=== PATIENT | female | born 1970 | race African-American/Black ===

== ENCOUNTER 2024-08-16 14:00 | Emergency (ER) | payer OTHER, SELFPAY ==
[2024-08-16] VITALS (17 sets, daily range): BP systolic 107–144; BP diastolic 72–95; PULSE 52–70; TEMP 36.8; O2SAT 94–99; BMI 35.8
--- NOTE | 2024-08-16 14:24 | ECG_ITS ---
[facility] Test Date: 2024-08-16 Pat Name: ALIZA MCKEON Department: Room: - Gender: Female [employer]: : 1970 Requested By: [id number] Order Number: [id number] Reading MD: MODESTO GIRON Measurements Intervals [place] Rate: 61 P: 58 [place]: 160 QRS: -25 QRSD: 84 T: 41 QT: 376 QTc: 379 Interpretive Statements 1100 Sinus rhythm 7202 Moderate left axis deviation 9110 normal ECG Electronically Signed On 08-16-2024 19:51:47 EST by MODESTO GIRON
--- NOTE | 2024-08-16 14:33 | ED.CHESTPAI1 ---
Documented by User: TIN Holm 08/16/24 16:20 HPI - Chest Pain General Chief Complaint: Chest Pain Stated Complaint: CHEST PAIN Time Seen by Provider: 08/16/24 14:07 Source: patient Mode of arrival: walk-in Limitations: no limitations History of Present Illness HPI narrative: Patient is a 54-year-old female with a history of hypercholesterolemia and bipolar disorder who presents to the emergency department for a 5 to 6-day history of pain in the left superior chest radiating into the neck and shoulder. Pain is worse with movement of the neck and lifting her left arm. 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 She denies any recent illness, cough or shortness of breath. She was never a smoker. She states her father had a heart attack at age 42 but he was on dialysis and had many other medical problems. She has no personal history of any heart or lung problems. She states her legs are chronically swollen but not unilaterally swollen or worse today. No medications taken prior to arrival. Related Data Home Medications ?Medication ?Instructions ?Recorded ?Confirmed duloxetine 30 mg capsule,delayed 30 mg PO DAILY 08/16/24 08/16/24 release rosuvastatin 20 mg tablet 20 mg PO DAILY 08/16/24 08/16/24 Previous Rx's ?Medication ?Instructions ?Recorded ketorolac 10 mg tablet 10 mg PO TID PRN pain #10 tabs 08/16/24 methocarbamol 750 mg tablet 750 mg PO TID PRN pain #20 tabs 08/16/24 Allergies Allergy/AdvReac Type Severity Reaction Status Date / Time No Known Drug Allergies Allergy Verified 08/16/24 14:19 Review of Systems ROS Constitutional Denies: fever or chills Ears, nose, mouth, and throat Reports: neck pain; Denies: throat pain Cardiovascular Reports: chest pain and swelling of feet/ankles; Denies: palpitations or shortness of breath with exertion Respiratory Denies: shortness of breath or cough Gastrointestinal Denies: abdominal pain, nausea or vomiting Musculoskeletal Reports: neck pain; Denies: back pain Integumentary/Breast Denies: rash Neurological Denies: numbness in extremities or weakness in extremities Hematologic/Lymphatic Denies: easy bruising or easy bleeding PFSH PFSH Social History Little interest or pleasure in doing things: not at all Feeling down, depressed, or hopeless: not at all Exam Narrative Exam Narrative: Gen.: Awake, alert, in no distress Head: Normocephalic, atraumatic ENT: Moist mucous membranes Respiratory: No respiratory distress, lungs clear bilaterally Cardio: Regular rate and rhythm Extremities: Moves extremities equally, no pitting edema Psych: Normal mood and affect Neuro: No focal neuro deficit Skin: Warm, dry, intact Constitutional Vital Signs, click to edit/add: Last Vital Signs Temp 98.2 F 08/16/24 14:09 Pulse 60 08/16/24 16:33 Resp 16 08/16/24 16:33 BP 139/89 08/16/24 16:33 Pulse Ox 98 08/16/24 16:33 O2 Del Method Room Air 08/16/24 16:33 Course Vital Signs Vital signs: Vital Signs Temperature 98.2 F 08/16/24 14:09 Pulse Rate 68 08/16/24 14:09 Respiratory Rate 18 08/16/24 14:09 Blood Pressure 144/95 H 08/16/24 14:09 Pulse Oximetry 98 08/16/24 14:09 Oxygen Delivery Method Room Air 08/16/24 14:09 Temperature 98.2 F 08/16/24 14:09 Pulse Rate 60 08/16/24 16:33 Respiratory Rate 16 08/16/24 16:33 Blood Pressure 139/89 08/16/24 16:33 Pulse Oximetry 98 08/16/24 16:33 Oxygen Delivery Method Room Air 08/16/24 16:33 MDM - Chest Pain MDM Narrative Medical decision making narrative: Medicated with aspirin as a precaution, given Toradol and Solu-Medrol for suspected musculoskeletal pain. Given history of high cholesterol and family history however, full cardiac workup including D-dimer was ordered. D-dimer and troponin are within normal limits, chest x-ray was obtained and repeat troponin was ordered as well. Patient with a heart score of 3 for BMI, family history and high cholesterol. Repeat troponin is within normal limits. Patient is hemodynamically stable with an unremarkable EKG and labs. She will be treated for musculoskeletal versus pleuritic chest pain for home, she has an appointment with her doctor on Friday and she was encouraged to keep this appointment for further testing as needed. Return to the ER if symptoms change or worsen. SUPERVISED APC VISIT, PHYSICIAN ATTESTATION: Based on the medical record the care appears appropriate. ? Medical Records Data Attestation: I reviewed the patient's medical records. Lab Data Attestation: I reviewed the patient's lab results. Labs: Lab Results 08/16/24 08/16/24 Range/Units 14:25 15:33 WBC 7.0 (4.0-11.0) 10^3/uL RBC 4.05 L (4.20-5.40) 10^6/uL Hgb 11.9 L (12.0-16.0) g/dL Hct 36.5 (36.0-48.0) % MCV 90.1 (81.0-99.0) fL MCH 29.4 (26.7-34.0) pg MCHC 32.6 (29.9-35.2) g/dL RDW 12.1 (11.0-15.0) % Plt Count 364 (150-450) 10^3/uL MPV 10.0 (9.5-13.5) fL Neut % (Auto) 56.2 (43.0-75.0) % Lymph % (Auto) 33.4 (20.5-60.0) % [place] % (Auto) 5.2 (1.7-12.0) % Eos % (Auto) 3.6 (0.9-7.0) % Baso % (Auto) 1.6 (0.2-2.0) % Neut # (Auto) 3.9 (1.4-6.5) 10^3/uL Lymph # (Auto) 2.3 (1.2-3.8) 10^3/uL [place] # (Auto) 0.4 (0.3-0.8) 10^3/uL Eos # (Auto) 0.3 (0.0-0.7) 10^3/uL Baso # (Auto) 0.1 (0.0-0.1) 10^3/uL Abs Immat Gran (auto) 0.00 (0.00-0.03) 10^3/uL Imm/Tot Granulo (auto) 0.0 (0.0-0.5) % PT 10.9 (9.0-11.6) sec INR 1.03 D-Dimer 0.24 (<=0.59) mg/L FEU Sodium 140 (136-145) mmol/L Potassium 4.0 (3.5-5.1) mmol/L Chloride 105 (98-107) mmol/L Carbon Dioxide 25.0 (21.0-32.0) mmol/L Anion Gap 14.0 BUN 10.0 (7.0-18.0) mg/dL Creatinine 0.82 (0.55-1.02) mg/dL Est GFR ( Amer) >60 (>=60 mL/min/1.73m^2) Est GFR (Non-Af Amer) >60 (>=60 mL/min/1.73m^2) BUN/Creatinine Ratio 12.2 Glucose 97 (74-106) mg/dL Calcium 9.3 (8.5-10.1) mg/dL Total Bilirubin 0.4 (0.2-1.0) mg/dL AST 15 (15-37) U/L ALT 25 (14-59) U/L Alkaline Phosphatase 68 (46-116) U/L Troponin I High Sens <4.0 L <4.0 L (4.0-51.3) pg/mL NT-Pro-B Natriuret Pep 85.0 (<=900.0) pg/mL Total Protein 7.1 (6.4-8.2) g/dL Albumin 3.6 (3.4-5.0) g/dL Globulin 3.5 g/dL Albumin/Globulin Ratio 1.0 Imaging Data Chest x-ray: Attestation: I have reviewed the pertinent imaging results. Radiologist's impression: ITS Impressions Chest X-Ray 08/16/24 15:03 IMPRESSION: 1. No acute cardiopulmonary process. Electronically authenticated by: CHRISS ANGULO Date: 08/16/2024 15:42 ECG Data Attestation: I personally reviewed and interpreted this ECG as follows: (Normal sinus rhythm at a rate of 61, no acute ST elevation or ectopy. EKG reviewed by attending physician) Heart Score History: Slightly/Non-Suspicious ECG: Normal Age: >45-<65 years Risk Factors: >3 Risk Factors/ HX of CAD:2 Troponin: <Normal Limit Total Heart Score Recommendations & Risks:: 3 Discharge Plan Discharge Chief Complaint: Chest Pain Clinical Impression: Chest pain Patient Disposition: Home, Self-Care Time of Disposition Decision: 16:18 Condition: Good Mode of Transportation: Private Vehicle Prescriptions / Home Meds: New ketorolac 10 mg tablet 10 mg PO TID PRN (Reason: pain) Qty: 10 0RF methocarbamol 750 mg tablet 750 mg PO TID PRN (Reason: pain) Qty: 20 0RF No Action rosuvastatin 20 mg tablet 20 mg PO DAILY duloxetine 30 mg capsule,delayed release(DR/EC) 30 mg PO DAILY Print Language: Slovenian Instructions: Chest Pain (ED) Referrals: Physician,Non-Staff, MD [Primary Care Provider] - 1 week Discharge Date/Time: 08/16/24 16:33 Documented by User: Ernst Akhtar MD 08/16/24 17:50 HPI - Chest Pain General Chief Complaint: Chest Pain Stated Complaint: CHEST PAIN Time Seen by Provider: 08/16/24 14:07 Related Data Home Medications ?Medication ?Instructions ?Recorded ?Confirmed duloxetine 30 mg capsule,delayed 30 mg PO DAILY 08/16/24 08/16/24 release rosuvastatin 20 mg tablet 20 mg PO DAILY 08/16/24 08/16/24 Previous Rx's ?Medication ?Instructions ?Recorded ketorolac 10 mg tablet 10 mg PO TID PRN pain #10 tabs 08/16/24 methocarbamol 750 mg tablet 750 mg PO TID PRN pain #20 tabs 08/16/24 Allergies Allergy/AdvReac Type Severity Reaction Status Date / Time No Known Drug Allergies Allergy Verified 08/16/24 14:19 PFSH PFSH Social History Little interest or pleasure in doing things: not at all Feeling down, depressed, or hopeless: not at all Exam Constitutional Vital Signs, click to edit/add: Last Vital Signs Temp 98.2 F 08/16/24 14:09 Pulse 60 08/16/24 16:33 Resp 16 08/16/24 16:33 BP 139/89 08/16/24 16:33 Pulse Ox 98 08/16/24 16:33 O2 Del Method Room Air 08/16/24 16:33 Course Vital Signs Vital signs: Vital Signs Temperature 98.2 F 08/16/24 14:09 Pulse Rate 68 08/16/24 14:09 Respiratory Rate 18 08/16/24 14:09 Blood Pressure 144/95 H 08/16/24 14:09 Pulse Oximetry 98 08/16/24 14:09 Oxygen Delivery Method Room Air 08/16/24 14:09 Temperature 98.2 F 08/16/24 14:09 Pulse Rate 60 08/16/24 16:33 Respiratory Rate 16 08/16/24 16:33 Blood Pressure 139/89 08/16/24 16:33 Pulse Oximetry 98 08/16/24 16:33 Oxygen Delivery Method Room Air 08/16/24 16:33 MDM - Chest Pain Lab Data Labs: Lab Results 08/16/24 08/16/24 Range/Units 14:25 15:33 WBC 7.0 (4.0-11.0) 10^3/uL RBC 4.05 L (4.20-5.40) 10^6/uL Hgb 11.9 L (12.0-16.0) g/dL Hct 36.5 (36.0-48.0) % MCV 90.1 (81.0-99.0) fL MCH 29.4 (26.7-34.0) pg MCHC 32.6 (29.9-35.2) g/dL RDW 12.1 (11.0-15.0) % Plt Count 364 (150-450) 10^3/uL MPV 10.0 (9.5-13.5) fL Neut % (Auto) 56.2 (43.0-75.0) % Lymph % (Auto) 33.4 (20.5-60.0) % [place] % (Auto) 5.2 (1.7-12.0) % Eos % (Auto) 3.6 (0.9-7.0) % Baso % (Auto) 1.6 (0.2-2.0) % Neut # (Auto) 3.9 (1.4-6.5) 10^3/uL Lymph # (Auto) 2.3 (1.2-3.8) 10^3/uL [place] # (Auto) 0.4 (0.3-0.8) 10^3/uL Eos # (Auto) 0.3 (0.0-0.7) 10^3/uL Baso # (Auto) 0.1 (0.0-0.1) 10^3/uL Abs Immat Gran (auto) 0.00 (0.00-0.03) 10^3/uL Imm/Tot Granulo (auto) 0.0 (0.0-0.5) % PT 10.9 (9.0-11.6) sec INR 1.03 D-Dimer 0.24 (<=0.59) mg/L FEU Sodium 140 (136-145) mmol/L Potassium 4.0 (3.5-5.1) mmol/L Chloride 105 (98-107) mmol/L Carbon Dioxide 25.0 (21.0-32.0) mmol/L Anion Gap 14.0 BUN 10.0 (7.0-18.0) mg/dL Creatinine 0.82 (0.55-1.02) mg/dL Est GFR ( Amer) >60 (>=60 mL/min/1.73m^2) Est GFR (Non-Af Amer) >60 (>=60 mL/min/1.73m^2) BUN/Creatinine Ratio 12.2 Glucose 97 (74-106) mg/dL Calcium 9.3 (8.5-10.1) mg/dL Total Bilirubin 0.4 (0.2-1.0) mg/dL AST 15 (15-37) U/L ALT 25 (14-59) U/L Alkaline Phosphatase 68 (46-116) U/L Troponin I High Sens <4.0 L <4.0 L (4.0-51.3) pg/mL NT-Pro-B Natriuret Pep 85.0 (<=900.0) pg/mL Total Protein 7.1 (6.4-8.2) g/dL Albumin 3.6 (3.4-5.0) g/dL Globulin 3.5 g/dL Albumin/Globulin Ratio 1.0 Imaging Data Chest x-ray: Radiologist's impression: ITS Impressions Chest X-Ray 08/16/24 15:03 IMPRESSION: 1. No acute cardiopulmonary process. Electronically authenticated by: CHRISS ANGULO Date: 08/16/2024 15:42 Heart Score Total Heart Score Recommendations & Risks:: 3 Discharge Plan Discharge Chief Complaint: Chest Pain Clinical Impression: Chest pain Patient Disposition: Home, Self-Care Time of Disposition Decision: 16:18 Condition: Good Mode of Transportation: Private Vehicle Prescriptions / Home Meds: New ketorolac 10 mg tablet 10 mg PO TID PRN (Reason: pain) Qty: 10 0RF methocarbamol 750 mg tablet 750 mg PO TID PRN (Reason: pain) Qty: 20 0RF No Action rosuvastatin 20 mg tablet 20 mg PO DAILY duloxetine 30 mg capsule,delayed release(DR/EC) 30 mg PO DAILY Print Language: Slovenian Instructions: Chest Pain (ED) Referrals: Physician,Non-Staff, MD [Primary Care Provider] - 1 week Discharge Date/Time: 08/16/24 16:33
[2024-08-16 14:42] LABS: Basophils Absolute Auto 0.1 10^3/uL (0.0-0.1); Basophils Percent Auto 1.6 % (0.2-2.0); Eosinophils Absolute Auto 0.3 10^3/uL (0.0-0.7); Eosinophils Percent Auto 3.6 % (0.9-7.0); Hematocrit 36.5 % (36.0-48.0); Hemoglobin 11.9 g/dL (12.0-16.0); Lymphocytes Absolute Auto 2.3 10^3/uL (1.2-3.8); Lymphocytes Percent Auto 33.4 % (20.5-60.0); Mean Corpuscular HGB Conc 32.6 g/dL (29.9-35.2); Mean Corpuscular Hemoglobin 29.4 pg (26.7-34.0); Mean Corpuscular Volume 90.1 fL (81.0-99.0); Monocytes Absolute Auto 0.4 10^3/uL (0.3-0.8); Monocytes Percent Auto 5.2 % (1.7-12.0); Neutrophils Absolute Auto 3.9 10^3/uL (1.4-6.5); Neutrophils Percent Auto 56.2 % (43.0-75.0); Platelet Count 364 10^3/uL (150-450); Red Blood Count 4.05 10^6/uL (4.20-5.40); Red Cell Distribution Width 12.1 % (11.0-15.0)
[2024-08-16] MEDS: ASPIRIN 81 MG TAB.CHEW 162 MG PO (14:42)
[2024-08-16] MEDS: KETOROLAC TROMETHAMINE 30 MG/ML VIAL IVP (14:43)
[2024-08-16] MEDS: METHYLPREDNISOLONE SOD SUCC PF 125 MG/2 ML VIAL IVP (14:44)
[2024-08-16 14:56] LABS: Alanine Aminotransferase 25 U/L (14-59); Albumin Level 3.6 g/dL (3.4-5.0); Alkaline Phosphatase 68 U/L (46-116); Aspartate Amino Transferase 15 U/L (15-37); BUN Creatinine Ratio 12.2; Bilirubin Total 0.4 mg/dL (0.2-1.0); Calcium 9.3 mg/dL (8.5-10.1); Chloride 105 mmol/L (98-107); Estimated GFR (African America >60 (>=60 mL/min/1.73m^2); Estimated GFR (Non-African Ame >60 (>=60 mL/min/1.73m^2); Globulin 3.5 g/dL; Glucose 97 mg/dL (74-106); INR 1.03; Prothrombin Time 10.9 sec (9.0-11.6); Sodium 140 mmol/L (136-145); Total Protein 7.1 g/dL (6.4-8.2)
[2024-08-16 15:00] LABS: D Dimer 0.24 mg/L FEU (<=0.59)
[2024-08-16 15:02] LABS: Troponin I High Sensitivity <4.0 pg/mL (4.0-51.3)
--- NOTE | 2024-08-16 15:03 | XR_ITS ---
The [address] [address] Patient Name: ALIZA MCKEON MRN: [id number] date: 1970 Sex: F Assigned Patient Location: ER Current Patient Location: ER Accession/Order Number: [id number] Exam Date: 08/16/2024 15:25 Report Date: 08/16/2024 15:42 At the request of: JUAN BARROW Procedure: XR chest 1V EXAMINATION: XR chest 1V HISTORY: Chest pain COMPARISON: No relevant comparison available. FINDINGS: LUNGS: No significant pulmonary parenchymal abnormalities. VASCULATURE: No increased pulmonary vasculature. PLEURA: No pneumothorax, effusion, or pleural thickening. CARDIAC: No cardiomegaly or cardiac silhouette abnormality. MEDIASTINUM: No visible mass or adenopathy. BONES: No fracture or visible bone lesion. OTHER: Negative. XR/XR chest 1V IMPRESSION: 1. No acute cardiopulmonary process. Electronically authenticated by: CHRISS ANGULO Date: 08/16/2024 15:42
[2024-08-16 15:59] LABS: Troponin I High Sensitivity <4.0 pg/mL (4.0-51.3)
== END 2024-08-16 16:33 | disposition home or self-care (01) ==
PROVIDERS: Physician Assistant; Emergency Provider Emergency Medicine; PCP Nurse Practitioner Family
DX: R07.9 Chest pain, unspecified (principal); M54.2 Cervicalgia; E78.00 Pure hypercholesterolemia, unspecified; F31.9 Bipolar disorder, unspecified
CPT/HCPCS: 36415; 71045; 80053; 83880; 84484; 85025; 85378; 85610; 93005; 96374; 96375; 99285; J1885; J2919